=== PATIENT | female | born 1995 | race Caucasian/White ===

== ENCOUNTER 2022-09-27 09:06 | Emergency (ER) | payer BC, SELFPAY ==
[2022-09-27 10:35] VITALS: BP 113/69; PULSE 64; RESP 18; TEMP 36.6; O2SAT 100; BMI 27.4
--- NOTE | 2022-09-27 10:46 | EXP.UTC ---
Discharge Plan Disposition Patient Disposition: Home, Self-Care Condition: Good Prescriptions Prescriptions: New ondansetron 4 mg tablet,disintegrating 4 mg PO Q8H PRN (Reason: nausea and vomiting) Qty: 10 0RF Referrals Follow up/Referrals: Provider,Referral, MD [Primary Care Provider] - See instructions Activity Restrictions/Add. Instructions Additional Instructions/Restrictions: *Monitor Temp, Over the counter Motrin or Tylenol as directed/as needed Tylenol every 4 hours and Motrin every 6 hours (as long as your family doctor has told you that you can take it) for fever or pain. and straight to ER if unable to lower temp less than 101.0 after medication given *Warm salt water gargles may help to soothe the throat *Throat Lozenges? *Warm fluids like tea with honey may help to soothe the throat? *Sleep elevated *Humidifier/Vaporizer Your throat swab was sent for culture. Those results are typically sent to your primary care. Be sure to follow up in 2-3 days with your family doctor/primary care physician if no improvement so they can review those result and treat if necessary. If you don?t have a primary care doctor, I recommend you get one but in the mean time, you will have to return to a walk in clinic Follow up IMMEDIATELY for new or worsening symptoms or no Noticeable improvement over the next 48-72 hours. 911 for difficulty breathing or swallowing You were tested for today for ?Upper Respiratory Panel with COVID19 your test result should be back in the next 24-48 hours, you may check your results on the [facility] Clinical Impressions Clinical Impression: Viral syndrome Instructions Patient Instructions: Sore Throat, DI for Nausea -- Adult Discharge ED Provider: Maren Dailey [facility] [place] HPI General Stated complaint: Lightheaded, nausea Time Seen by Provider: 09/27/22 10:46 History of Present Illness Provider Complaint: Patient state that she has been feeling achy all over, fatigue, nausea and felt light headed earlier State that she had strep throat last week but didnt go to the doctor and her sore throat is better now States that she took nausea pill this morning and it did help with her nausea but she came in to get checked worried that she may have the flu and her family recently had COVID Related Data Previous Rx's Medication Instructions Recorded ondansetron 4 mg disintegrating 4 mg PO Q8H PRN nausea and 09/27/22 tablet vomiting #10 tabs Allergies Allergy/AdvReac Type Severity Reaction Status Date / Time sulfamethoxazole Allergy Verified 09/27/22 10:54 [From Bactrim] trimethoprim [From Bactrim] Allergy Verified 09/27/22 10:54 PFSH PFSH Medical History (Updated 09/27/22 @ 11:08 by Maren Dailey APRN) No significant past medical history Social History (Updated 09/27/22 @ 10:53 by Lakeisha Nuñez RN) Smoking Status: Unknown if ever smoked alcohol intake: never current occupational status: other Travel in the last 8 weeks: None ROS Obtained: Yes All systems reviewed & no additional complaints except as documented and Yes Systems reviewed as appropriate & no additional complaints except as documented Constitutional Constitutional: Reports system reviewed and no additional complaints, except as documented, Reports as per HPI, Reports body ache, Reports chills, Reports fatigue and Reports fever(s) ENT Ears, Nose, Mouth, and Throat: Reports system reviewed and no additional complaints, except as documented, Reports as per HPI, Reports dizziness and Reports nasal congestion Cardiovascular Cardiovascular: Reports system reviewed and no additional complaints, except as documented and Reports as per HPI Respiratory Respiratory: Reports system reviewed and no additional complaints, except as documented and Reports as per HPI Gastrointestinal Gastrointestingal: Reports system reviewed and no additional complaints, except as documented, as per H
[2022-09-27 11:04] VITALS: BP 113/69; PULSE 64; RESP 18; TEMP 36.6; O2SAT 100
[2022-09-27 11:04] LABS: UTC Influenza A Antigen Negative (Negative); UTC Strep Screen (Rapid) Negative (Negative)
[2022-09-27 11:05] LABS: UTC Influenza B Antigen Negative (Negative)
[2022-09-27 11:34] LABS: Adenovirus,PCR Not Detected (NotDetected); Bordetella Pertussis Not Detected (NotDetected); Chlamydophila Pneumoniae, PCR Not Detected (NotDetected); Coronavirus 19, PCR Not Detected (NotDetected); Coronavirus 229E Not Detected (NotDetected); Coronavirus NL63 Not Detected (NotDetected); Coronavirus OC43 Not Detected (NotDetected); Coronovirus HKU1,PCR Not Detected (NotDetected); Human Metapneumovirus Not Detected (NotDetected); Influenza A, PCR Not Detected (NotDetected); Influenza AH1, 2009 Not Detected (NotDetected); Influenza AH1, PCR Not Detected (NotDetected); Influenza AH3,PCR Not Detected (NotDetected); Influenza B, PCR Not Detected (NotDetected); Mycoplasma Pneumoniae, PCR Not Detected (NotDetected); Parainfluenza 1, PCR Not Detected (NotDetected); Parainfluenza 2, PCR Not Detected (NotDetected); Parainfluenza 3, PCR Not Detected (NotDetected); Parainfluenza 4, PCR Not Detected (NotDetected); Respiratory Syncytial Virus Not Detected (NotDetected); Rhinovirus/Enterovirus Not Detected (NotDetected)
== END 2022-09-27 11:16 | disposition home or self-care (01) ==
PROVIDERS: Emergency Provider Nurse Practitioner
DX: J02.9 Acute pharyngitis, unspecified (principal); R50.9 Fever, unspecified; M19.90 Unspecified osteoarthritis, unspecified site; R09.81 Nasal congestion; R11.2 Nausea with vomiting, unspecified; Z20.822 Contact with and (suspected) exposure to COVID-19; Z79.899 Other long term (current) drug therapy; Z88.2 Allergy status to sulfonamides; Z88.3 Allergy status to other anti-infective agents
CPT/HCPCS: 87581; 87632; 87798; 87804; 87880; 99213; C9803; G0463; U0003; U0005

== ENCOUNTER 2022-12-13 10:31 | Emergency (ER) | payer BC, SELFPAY ==
[2022-12-13 11:15] VITALS: BP 136/86; PULSE 57; RESP 20; TEMP 36.8; O2SAT 96; BMI 30.2
--- NOTE | 2022-12-13 11:19 | EXP.UTC ---
Discharge Plan Disposition Patient Disposition: Home, Self-Care Condition: Good Prescriptions Prescriptions: New ondansetron 4 mg Tablet,Disintegrating 4 mg PO Q8H PRN (Reason: Nausea) Qty: 12 0RF Referrals Follow up/Referrals: Provider,Referral, MD [Primary Care Provider] - See instructions Activity Restrictions/Add. Instructions Additional Instructions/Restrictions: Drink plenty of fluids. Take tylenol or ibuprofen for pain or fever. Take the medications as directed. Follow up with your regular doctor. GO TO THE ER FOR ANY WORSENING SYMPTOMS Clinical Impressions Clinical Impression: Gastroenteritis Stand Alone Forms Stand Alone Forms: Work/School Release Instructions Patient Instructions: DI for Viral Gastroenteritis -- Adult, Ondansetron Discharge ED Provider: Asa Mederos [place] HPI General Stated complaint: Vomitting,Diarrhea, pain under ribs Time Seen by Provider: 12/13/22 11:19 History of Present Illness Provider Complaint: She states that for the past 1 day she has had n/v/d. She has had chills, but no fever. She denies any fever and chills. Related Data Previous Rx's Medication Instructions Recorded ondansetron 4 mg disintegrating 4 mg PO Q8H PRN Nausea #12 tabs 12/13/22 tablet Allergies Allergy/AdvReac Type Severity Reaction Status Date / Time sulfamethoxazole Allergy Verified 12/13/22 11:27 [From Bactrim] trimethoprim [From Bactrim] Allergy Verified 12/13/22 11:27 [facility] Disclaimer: The information contained in this section may have been updated after the patient was seen, as this information can be updated by other users. Medical History No significant past medical history Social History Smoking Status: Unknown if ever smoked alcohol intake: never current occupational status: other Travel in the last 8 weeks: None ROS Obtained: Yes All systems reviewed & no additional complaints except as documented Constitutional Constitutional: Denies chills, Denies fever(s) and Reports poor appetite ENT Ears, Nose, Mouth, and Throat: Denies dizziness and Denies sore throat Cardiovascular Cardiovascular: Denies dyspnea Respiratory Respiratory: Denies chest congestion, Denies cough and Denies dyspnea Gastrointestinal Gastrointestingal: Reports as per HPI Genitourinary Female Genitourinary: Denies difficulty voiding, Denies dysuria, Denies hematuria, Denies urinary frequency, Denies urinary incontinence, Denies urinary hesitancy and Denies urinary urgency Musculoskeletal Musculoskeletal: Denies arthralgias Integumentary/Breasts Skin/Breast: Denies rash Neurologic Neurologic: Denies dizziness Physical Exam General General appearance: alert and in no apparent distress Head Head exam: atraumatic and normocephalic Eye Eye exam: Present normal appearance, PERRL and EOMI ENT ENT exam: Present normal exam, normal oropharynx, mucous membranes moist, TM's normal bilaterally and normal external ear exam Neck Neck exam: Present normal inspection, full ROM and trachea midline; Absent tenderness, meningismus or lymphadenopathy Chest Chest inspection: Present normal inspection and symmetric chest wall rise; Absent tenderness, rash or abscess Respiratory Respiratory exam: Present normal lung sounds bilaterally; Absent respiratory distress, wheezes or stridor Cardiovascular Cardiovascular exam: Present regular rate and normal rhythm; Absent irregular rhythm, systolic murmur, diastolic murmur or JVD Abdominal Exam Abdominal exam: Present soft and normal bowel sounds; Absent distention, tenderness, guarding, rebound, rigidity, psoas sign, obturator sign, heel tap sign, Sin's sign, Rovsing's sign or tenderness at McBurney's Point Extremities Exam Extremities exam: Present normal inspection and full ROM; Absent tenderness Back Exam Back exam: Present normal i
[2022-12-13 11:34] LABS: UTC Influenza A Antigen Negative (Negative); UTC Influenza B Antigen Negative (Negative)
[2022-12-13 12:09] VITALS: BP 136/86; PULSE 57; RESP 20; TEMP 36.8; O2SAT 96
== END 2022-12-13 12:09 | disposition home or self-care (01) ==
PROVIDERS: Emergency Provider Nurse Practitioner Family
DX: K52.9 Noninfective gastroenteritis and colitis, unspecified (principal)
CPT/HCPCS: 87804; 99212; 99213; C9803; G0463; U0003; U0005

== ENCOUNTER 2024-03-12 09:14 | Emergency (ER) | payer OTHER, SELFPAY ==
[2024-03-12 09:16] VITALS: BP 132/82; PULSE 92; RESP 18; TEMP 36.6; O2SAT 100; BMI 32.1
--- NOTE | 2024-03-12 09:29 | ED_ITS ---
Discharge Plan Disposition Patient Disposition: Home, Self-Care Prescriptions Prescriptions: New ondansetron 4 mg tablet,disintegrating 4 mg PO Q6H PRN (Reason: nausea and vomiting) 5 Days Qty: 20 0RF No Action ondansetron 4 mg tablet,disintegrating 4 mg PO Q8H PRN (Reason: nausea and vomiting) Qty: 20 0RF Referrals Follow up/Referrals: Provider,Referral, MD [Primary Care Provider] - See instructions Clinical Impressions Clinical Impression: Alcohol consumption binge drinking, Nausea & vomiting, Marijuana abuse Instructions Patient Instructions: DI for Diarrhea and Traveler's Diarrhea -- Adult, DI for Diarrhea and Traveler's Diarrhea -- Child, DI for Nausea -- Adult, DI for Nausea -- Child Discharge ED Provider: Richy Carney General Adult HPI General Chief complaint: Nausea/Vomiting/Diarrhea Stated complaint: vomiting, weakness Time Seen by Provider: 03/12/24 09:23 Mode of Arrival: Ambulatory Source of Information: Patient Limitations: No Limitations Description of Symptoms (Recalled from ER Triage Doc. by RN): drank too much last night, is now vomiting. cant keep anything down History of Present Illness HPI narrative: Patient is a 28-year-old female presents today with nausea and vomiting after a night of binge drinking and marijuana abuse. She states that she had 3 shots of fireball, 2 boxes of wine coolers, and a cup of Adriano Catarino also while smoking marijuana. Since that time she had significant nausea vomiting. She has some abdominal discomfort but does not localize. Denies any other past medical problems. Related Data Previous Rx's Medication Instructions Recorded ondansetron 4 mg disintegrating 4 mg PO Q8H PRN nausea and 03/03/24 tablet vomiting #20 tabs ondansetron 4 mg disintegrating 4 mg PO Q6H PRN nausea and 03/12/24 tablet vomiting 5 days #20 tabs Allergies Allergy/AdvReac Type Severity Reaction Status Date / Time sulfamethoxazole Allergy Verified 03/03/24 09:45 [From Bactrim] trimethoprim [From Bactrim] Allergy [facility]24 09[facility] Dis[facility]: The information contained in this section may have been updated after the patient was seen, as this information can be updated by other users. Medical History (Updated 03/12/24 @ 09:29 by Richy Carney MD) No significant past medical history Surgical History (Updated 03/03/24 @ 09:45 by Jackeline Hollingsworth MA) No significant past surgical history Social History (Updated 03/03/24 @ 09:46 by Jackeline Hollingsworth MA) Smoking Status: Current every day smoker alcohol intake: never current occupational status: other Travel in the last 8 weeks: None ROS Obtained: Yes All systems reviewed & no additional complaints except as documented Physical Exam General General appearance: other (Tremulous) Respiratory Respiratory exam: Present normal lung sounds bilaterally Cardiovascular Cardiovascular exam: Present regular rate Abdominal Exam Abdominal exam: Present soft; Absent distention or tenderness Neurological Exam Neurological exam: Present alert and oriented X3 Medical Decision Making Zander Inquiry Pt receiving controlled substance: No Vital Signs: 03/12/24 09:16 Temperature 97.8 F Temperature Source Oral Pulse Rate [Right] 92 H Respiratory Rate 18 Blood Pressure [Right Arm] 132/82 Blood Pressure Mean [Right Arm] 98 02 Sat by Pulse Oximetry 100 Oxygen Delivery Method Room Air Lab Data Lab results reviewed: Yes I reviewed the patient's lab results. Lab Results 03/12/24 09:30: WBC 10.3, RBC 5.31, Hgb 15.9, Hct 47.9 H, MCV 90.2, MCH 30.0, MCHC 33.2, RDW 12.4, Plt Count 366, MPV 7.9, Neut % (Auto) 77.2, Lymph % (Auto) 17.7, Zavala % (Auto) 3.9, Eos % (Auto) 0.6, Baso % (Auto) 0.6, Neut # (Auto) 8.0 H, Lymph # (Auto) 1.8, Zavala # (Auto) 0.4, Eos # (Auto) 0.1, Baso # (Auto) 0.1, Sodium 141, Potassium 3.5, Chloride 106, Carbon Dioxide 21 L, Anion Gap 17.5 H, BUN 7, Creatinine 0.70, Estimated Creat Clear 153, Estimated GFR 101, Est GFR ( Amer) 122, Glucose 98, Calcium 10.0, Total Bilirubin 1.6 H, AST 31, ALT 32, Alkaline Phosphatase 97, Total Protein 8.6 H, Albumin 5.0, Globulin 3.6 H, Albumin/Globulin Ratio 1.4, Lipase 48 03/12/24 09:30 03/12/24 09:30 Orders (Tests/Meds): ED MEDICATIONS Discontinued Medications Generic Name Dose Route Start Last Admin Trade Name Tawnya PRN Reason Stop Dose Admin Lactated Ringer's 1,000 mls @ 999 mls/hr 03/12/24 09:30 03/12/24 09:44 Lactated Ringer's 1000 Ml Bag IV 03/12/24 10:30 999 mls/hr .Q1H1M CIERA Administration Ondansetron HCl 4 mg 03/12/24 09:27 03/12/24 09:44 Ondansetron 4mg/2ml Vial IV 03/12/24 09:28 4 mg ONCE ONE Administration ORDERS Category Date Time Status CBC w/Auto Diff [Complete Blood Count Auto Diff] Stat Lab 03/12/24 09:30 Completed CMP [Comprehensive Metabolic Panel] Stat Lab 03/12/24 09:30 Completed Ethanol [Ethyl Alcohol] Stat Lab 03/12/24 09:30 Received Lipase Stat Lab 03/12/24 09:30 Completed Medical Decision Narrative: 28-year-old female presents today with nausea and vomiting after significant alcohol abuse and marijuana abuse. Differential includes pancreatitis dehydration from nausea and vomiting from gastritis, effects from alcohol poisoning and marijuana abuse, etc. Will reassess after IV fluids and Zofran and labs. Reassessment 11:08 AM. Patient feeling much better tolerating p.o. serial abdominal exams benign labs unremarkable aside from mildly elevated total bilirubin which she is made aware of. She has been strongly encouraged to stop drinking so heavily. And to stop doing drugs. She was discharged in stable condition. Critical Care Critical Care Time Critical Care Time: No
[2024-03-12] MEDS: ONDANSETRON 4MG/2ML VIAL 4 MG IV (09:44)
[2024-03-12] MEDS: LACTATED RINGERS 1000ML 1,000 ML 999 ML IV (09:44)
[2024-03-12 10:00] LABS: Basophils # 0.1 K/mm3 (0-0.2); Basophils % 0.6 % (0.1-2.0); Eosinophils # 0.1 K/mm3 (0.0-0.4); Eosinophils % 0.6 % (0.1-12.0); Hematocrit 47.9 % (37.0-47.0); Hemoglobin 15.9 g/dL (12.2-16.2); Lymphocytes # 1.8 K/mm3 (0.7-4.5); Lymphocytes % 17.7 % (10-50); Mean Corpuscular HGB Conc 33.2 g/dL (31.8-35.4); Mean Corpuscular Volume 90.2 fl (81-99); Mean Platelet Volume 7.9 fl (7.4-10.4); Monocytes # 0.4 K/mm3 (0.1-1.0); Monocytes % 3.9 % (1.7-9.3); Neutrophils % 77.2 % (37.0-80.0); Platelet Count 366 K/mm3 (142-424); Red Blood Count 5.31 M/mm3 (4.20-5.40); Red Cell Distribution Width 12.4 % (11.5-17.5); White Blood Count 10.3 K/mm3 (4.8-10.8)
[2024-03-12 10:07] LABS: Alanine Aminotransferase 32 U/L (12-78); Alkaline Phosphatase 97 U/L (38-126); Aspartate Amino Transferase 31 U/L (14-36); Bilirubin,Total 1.6 mg/dl (0.2-1.3); Blood Urea Nitrogen 7 mg/dl (7-17); Carbon Dioxide 21 mmol/L (22.0-30.0); Chloride 106 mmol/L (98-107); Creatinine Clearance Estimated 153 mL/min (50-200); Estimated Glomerular Filt Rate 101 ml/min (>60); GFR (African American) 122 ML/MIN (>60); Glucose 98 mg/dl (74-100); Lipase 48 U/L (23-300); Sodium 141 mmol/L (136-145)
[2024-03-12 10:08] LABS: Albumin/Globulin Ratio 1.4 (1.1-1.8); Globulin 3.6 g/dL (1.3-3.2); Total Protein,Serum 8.6 g/dl (6.3-8.2)
[2024-03-12 10:26] LABS: Anion Gap 17.5 mEq/L (5-15); Potassium 3.5 mmoL/L (3.5-5.1)
--- NOTE | 2024-03-12 10:27 | PC.NURSE ---
pt tolerating po intake well. states she is feeling better
[2024-03-12 11:17] VITALS: BP 132/82; PULSE 85; RESP 18; TEMP 36.8; O2SAT 100
[2024-03-12 11:25] LABS: Ethyl Alcohol < 10 mg/dl (0-10)
== END 2024-03-12 11:19 | disposition home or self-care (01) ==
PROVIDERS: Emergency Provider Student in an Organized Health Care Education/Training Program
DX: R10.819 Abdominal tenderness, unspecified site (principal); R11.2 Nausea with vomiting, unspecified; F10.90 Alcohol use, unspecified, uncomplicated; F17.210 Nicotine dependence, cigarettes, uncomplicated
CPT/HCPCS: 80053; 83690; 85025; 96361; 96374; 99284; J2405